=== PATIENT | male | born 2000 | race Caucasian/White ===

== ENCOUNTER 2020-06-08 17:52 | Emergency (ER) | payer BC, SELFPAY ==
--- NOTE | 2020-06-08 18:21 | RAD ---
PORTABLE CHEST: 06/08/20 HISTORY: Syncope. Lungs appear clear. No infiltrate identified. Heart and mediastinum appear normal. IMPRESSION: No acute process. POS: AGW
--- NOTE | 2020-06-08 18:59 | CT ---
CT HEAD WITHOUT CONTRAST: 06/08/20 INDICATION: Injury. Head injury five days ago. FINDINGS: Ventricles have normal size and position. No evidence of intracranial hemorrhage. No mass or contusio n. No edema. The paranasal sinuses and mastoids are clear. IMPRESSION: No acute findings. POS: AGW
== END 2020-06-08 20:28 | disposition home or self-care (01) ==
LOC: ERS 17:52
DX: F07.81 Postconcussional syndrome (principal); R94.31 Abnormal electrocardiogram [ECG] [EKG]; F17.210 Nicotine dependence, cigarettes, uncomplicated
CPT/HCPCS: 70450; 71045; 93005